=== PATIENT | female | born 1950 | race Caucasian/White ===

== ENCOUNTER 2017-01-05 12:58 | Inpatient (IN) ==
--- NOTE | 2017-01-04 22:00 | Discharge Summary ---
<Yun Dan - Last Filed: 01/04/17 21:58> Date of Encounter: 01/04/17 - Discharge Diagnosis (1) Arthritis of right hip Priority: Primary Status: Chronic - Discharge Medications Home Medications: Aspirin Enteric Coated [Aspirin EC] 325 mg PO QAM #21 tablet. 01/04/17 [Rx] OxyCODONE Immed Rel [Roxicodone 5 MG] 5 - 10 mg PO Q6HR PRN #40 tablet 01/04/17 [Rx] Etodolac [Lodine] 400 mg PO BID 01/05/17 [History] Allergies/Adverse Reactions: Allergies Sulfa (Sulfonamide Antibiotics) Adverse Reaction (Verified 01/06/17 19:30) See Comments PATIENT UNSURE OF REACTION,OCCURED AN INFANT Primary care physician: Juan Ramon Zavala MD - Patient Status Disposition: Home, Self-Care Condition: Good - Discharge Instructions Follow Up With: Juan Ramon Zavala MD [Primary Care Provider] - - Hospital Course Hospital course: Ms. Chairez is a 66 year old female - Time Spent with Patient Total time spent providing and/or coordinating discharge services: - VTE Documentation of Mechanical Device: Venous foot pump, device <Leodan Mccarty - Last Filed: 01/07/17 08:05> Date of Encounter: 01/07/17 Time of Encounter: 08:04 - Discharge Diagnosis (1) Status post right hip replacement Priority: Primary Status: Acute (2) Arthritis of right hip Priority: Primary Status: Acute Primary care physician: Juan Ramon Zavala MD - Patient Status Functional capacity at discharge: uses cane/walker Overall status at discharge: patient is progressing back to baseline - Hospital Course Hospital course: Ms. Chairez is a 66 year old female Status post right total hip replacement. The patient had an uneventful postoperative course. They received antibiotics and physical therapy and were discharged in stable condition. There will follow -up in the office in 2 weeks. Aspirin DVT prophylaxis discharge hemoglobin 10 a symptomatic - Time Spent with Patient Total time spent providing and/or coordinating discharge services:
[2017-01-05] MEDS ORDERED: Gabapentin 300 MG CAPSULE PO ONE (13:07)
[2017-01-05] MEDS ORDERED: Famotidine 20 MG/2 ML VIAL IVP ONE (13:07)
[2017-01-05] MEDS ORDERED: CeFAZolin Pre 2,000 MG/100 ML 2,000 MG/100 ML BAG IVPB ONE (13:13)
[2017-01-05] MEDS ORDERED: Ringers Solution, Lactated 1,000 ML IVC SCH ×2 (13:15→17:33)
--- NOTE | 2017-01-05 13:20 | History & Physical Report ---
Date of Encounter: 01/05/17 Time of Encounter: 13:19 24 Hour HP Update - Instructions Instructions: If the History and Physical is less than 30 days old and was completed prior to A.M. admission and or procedure and has NOT been updated on calendar day of procedure please complete this update prior to performing procedure. - Update Patient reports changes in Medical Condition: No Changes in examination, assessment, or condition: No Changes in Medication: No Preop tests/diagnostics Reviewed: Yes Surgery Remains Indicated: Yes Consent for Planned Operative Procedure(s) Verified: Yes - Pre-Operative Checklist Preoperative Checklist Indicated: No Prophylactic Antibiotic Ordered: Yes Is VTE Prophylaxis Indicated?: Yes
[2017-01-05] MEDS ORDERED: *HR* Propofol 200 MG/20 ML VIAL IVP ONE (13:36)
[2017-01-05] MEDS ORDERED: Lidocaine -MPF 2% 2 ML VIAL ONE (13:36)
[2017-01-05] MEDS ORDERED: *HR* Midazolam HCl 2 MG/2 ML VIAL ONE (13:36)
[2017-01-05] MEDS ORDERED: Ondansetron 4 MG/2 ML VIAL ONE (13:36)
[2017-01-05] MEDS ORDERED: *HR* FentaNYL (PF) 100 MCG/2 ML VIAL ONE (13:36)
[2017-01-05] MEDS ORDERED: *HR* Succinylcholine 200 MG/10 ML VIAL IVP ONE (13:36)
--- NOTE | 2017-01-05 13:36 | Anesthesia Evaluation PreOp ---
Date of Encounter: 01/05/17 Time of Encounter: 13:30 - Past History Planned Operation: Rt THR Cardiac History: Denies any Significant Hx Pulmonary History: Denies Any Significant HX OUTREACH EDUCATOR History: Denies Any Significant HX Other Medical History: Other (Osteoarthritis) Anesthesia History: No Prior Anesthetic Complications : No Test: Negative Alcohol Use: occasionally Drug use: none Medications and Allergies Aspirin Enteric Coated [Aspirin EC] 325 mg PO QAM #21 tablet. 01/04/17 [Rx] OxyCODONE Immed Rel [Roxicodone 5 MG] 5 - 10 mg PO Q6HR PRN #40 tablet 01/04/17 [Rx] Etodolac [Lodine] 400 mg PO BID 01/05/17 [History] Allergies Sulfa (Sulfonamide Antibiotics) Adverse Reaction (Unverified 01/05/17 13:14) See Comments PATIENT UNSURE OF REACTION,OCCURED AN - Meds/Allergy Pre-op Review Medications Reviewed: Yes Allergies Reviewed: Yes Beta Blockers on Current Med List: No Anesthesia Results - Labs Laboratory Tests 12/25/16 12/25/16 08:40 08:40 Hgb 13.3 Hct 39.9 Plt Count 255 Sodium 137 Potassium 4.7 H BUN 11 Creatinine 0.85 Anesthesia Exam O2 Sat Height 1.63 m Height 1.63 m Weight 78.471 kg Weight 78.471 kg O2 Sat by Pulse Oximetry 95 Vital Signs Temp Pulse Resp BP Pulse Ox 98.2 F 93 18 136/82 95 01/05/17 13:12 01/05/17 13:12 01/05/17 13:12 01/05/17 13:12 01/05/17 13:12 Height: 5'4 Weight: 173 lbs NPO (# of Hours): MN Pain Scale: 0 - HEENT Pupil (Motor): Pupils equal, EOMI Mallampati: II Teeth: Normal Oral Opening: Greater than 3 - OUTREACH EDUCATOR LOC: Oriented OUTREACH EDUCATOR Motor: Normal RUE, Normal LUE, Normal RLE, Normal LLE, Normal Face OUTREACH EDUCATOR Sensory: Normal: RUE, LUE, RLE, LLE, Face - Cardiac Rhythm: Regular Murmur: None JVD: No Carotid Bruit: No - Pulmonary Breath Sounds: bilateral Clear Respiratory Effort: Symmetrical Anesthesia Assess/Plan ASA Score: 2 Modified Tim Scale for Level of Consciousness: Cooperative, oriented, and tranquil Anesthetic Plan: General, Regional Monitoring Plan: Standard Monitors Recovery Plan: PACU (Discussed GA and RA, agrees to proceed)
[2017-01-05] MEDS ORDERED: Ondansetron 4 MG/2 ML VIAL IVP ONE (13:40)
[2017-01-05] MEDS ORDERED: Bupivacaine/Clonidine Syringe 1 EACH SYRINGE ONE (13:41)
--- NOTE | 2017-01-05 15:01 | Anesthesia Procedures ---
Date of Encounter: 01/05/17 Time of Encounter: 13:35 Procedures: Anesthesia - Nerve Block Procedure Date: 01/05/17 Time: 14:40 Pre-op Diagnosis: Rt Hip Osteoarthritis Surgical Procedure: Rt THR Checklist: Correct Patient Identifier Correct side: Right Monitor Applied: EKG Supplemental Oxygen via Nasal Cannula (L/min): 2 Sedation: Versed (mg): 2 Sedation: Fentanyl (mcg): 100 Indication: Post Op Analgesia Pre-op Neuro Deficits: No Block Type: Other (Fascia Iliaca) Catheter placed: No Depth at skin (cm): 2 Sterile Technique: Yes Ultrasound used: Yes Anatomy identified: Yes Visual spread of Local: Yes Neuro Stimulation: No Blood on Needle Aspiration: No Smooth Injection of Local: Yes Pain with Injection of Local: No Prep: Chlorhexadine Needle: 22 x 50 mm Stimuplex Local: 0.25% Bupivicaine w/Clonidine 20 mcg/cc Volume (cc): 60 Number of Attempts: 1 Complications: None/effective block Vitals: O2 Sat Height 1.63 m Height 1.63 m Height 1.63 m Weight 78.471 kg Weight 78.471 kg Weight 78.471 kg O2 Sat by Pulse Oximetry 96 O2 Sat by Pulse Oximetry 98 O2 Sat by Pulse Oximetry 95 Vital Signs Temp Pulse Resp BP Pulse Ox 98.2 F 93 18 136/82 95 01/05/17 13:12 01/05/17 13:12 01/05/17 13:12 01/05/17 13:12 01/05/17 13:12
[2017-01-05] MEDS ORDERED: *HR* HYDROmorphone 2 MG/ML SYRINGE ONE (15:23)
--- NOTE | 2017-01-05 15:48 | Orthopedic Operative Note ---
Date of procedure: 01/05/17 Pre-op diagnosis: Right hip arthritis Post-op diagnosis: same Procedure: Procedure: Right Total Hip Replacment Estimated blood loss: 200 cc Hardware: Metal and polyethylene replacement. Biomet DM Cup: 52 G7 fin cup Femoral size 12 echo full profile lateralized stem Head: +3 head with Marah Procedural Notes: Grade 4 arthritic changes femoral head acetabular socket. Operative procedure: The patient was brought to the operating room and placed on the operating room table. After general anesthesia was administered the patient was placed in the lateral decubitus position with the operative leg up. All pressure points were padded appropriately and the head was stabilized in the neutral position. The operative extremity was prepped and draped in the sterile surgical fashion patient received IV antibiotic prior to skin incision. A standard posterior approach is made to the operative hip, the incision was made through the skin and subcutaneous tissue hemostasis was obtained with Bovie cautery. Using careful sharp dissection the fascia was identified and incised exposing the external rotators. The external rotators were released off the greater trochanter and tagged with #2 FiberWire suture. The capsule was T'd open and the hip was brought into internal rotation. Patient noted to have grade 4 arthritic changes femoral head. The femoral neck cut was made at the appropriate level. An anterior capsulotomy was performed for the anterior retractor. Soft tissues removed from the acetabulum. Patient noted to have grade 4 arthritic changes acetabulum. Acetabulum was first reamed medially, and then reamed in 15 degrees of anteversion and 45 degrees off the horizontal. It was reamed up to the appropriate size 52 The appropriate-sized to acetabular cup was impacted in place in 15 degrees of anteversion and 45 degrees off the horizontal. This had good fit and fixation. The hip was brought back in to internal rotation and prepared with the box maker followed by the canal finder followed by broaching process in 20 degrees anteversion. It was broached up to the appropriate size 12 The femoral implant was impacted in place in 20 degrees of anteversion. Trial reduction found the hip to be stable with 3 head and Marah. The trials were removed and the real implants were impacted in place. The hip was reduced, patient had apparent equal leg lengths. The hip had excellent stability with forward flexion to 90 degrees adduction of 30 degrees and internal rotation of 60 degrees. The hip had no shuck. The hips after 2 minutes with a Betadine saline solution. It was irrigated out with 2 L of pulse irrigation. Yun the PA close the hip, Fascia was closed with a running #2 PDS suture. The deep tissue was irrigated and closed deep with #1 PDS suture superficially with 0 PDS suture and skin was closed with Dermabond and skin lori. The patient was placed in a sterile dressing and abduction pillow. The patient was extubated and transferred to the recovery room in stable condition. Anesthesia: GETA Surgeon: Leodan Mccarty Condition: stable Disposition: PACU
[2017-01-05] MEDS: *HR* HYDROmorphone (PF) 1 MG/ML SYRINGE IVP PRN ×3 (16:29→16:48)
[2017-01-05 16:51] LABS: Hematocrit 34.1 % (35.3-44.9); Hemoglobin 11.3 g/dL (11.5-15.4)
--- NOTE | 2017-01-05 17:06 | Anesthesia Evaluation Post Op ---
Date of Encounter: 01/05/17 Time of Encounter: 17:05 - Vital Signs Vital Signs: Vital Signs/O2 Sat/Glucose, Most Current Temp Pulse Resp BP Pulse Ox 01/05/17 16:55 85 16 158/96 97 01/05/17 16:45 97.2 F L 86 16 154/96 97 01/05/17 16:35 83 16 151/94 95 01/05/17 16:25 84 16 147/96 97 01/05/17 16:15 97.7 F 89 12 141/101 100 01/05/17 14:46 80 16 127/72 96 01/05/17 14:23 81 16 146/93 98 01/05/17 13:12 98.2 F 93 18 136/82 95 - Lungs Lungs: Clear Ascult./Percussion - Airway Airway: Non-obstructed - Cardiovascular Regular Rate - Mental Status Mental Status: Alert & Oriented, Answers Appropriately - Pain Pain Scale: 0 - Nausea Vomiting Nausea Vomiting: Not Present - Hydration Hydration: Ice chips - Discharge PostOp Status: Transfer Patient to floor
[2017-01-05] MEDS ORDERED: Naloxone 0.4 MG/ML INJ IVP PRN (17:33)
[2017-01-05] MEDS ORDERED: Ondansetron 4 MG/2 ML VIAL IVP PRN (17:33)
[2017-01-05] MEDS ORDERED: *HR* HYDROmorphone (PF) 1 MG/ML SYRINGE IVP PRN (17:33)
[2017-01-05] MEDS ORDERED: Temazepam 15 MG CAPSULE PO PRN (17:33)
[2017-01-05] MEDS ORDERED: Sennosides 8.6 MG TABLET PO PRN (17:33)
[2017-01-05] MEDS ORDERED: MOM Conc 10 ML UD.LIQ PO PRN (17:33)
[2017-01-05] MEDS ORDERED: *HR* Enoxaparin 30 MG/0.3 ML SYRINGE SQ SCH (18:00)
[2017-01-05] MEDS: ceFAZolin 2,000 MG in D5% in Water 100 ML IVPB SCH (18:49)
[2017-01-05] MEDS: Ascorbic Acid 500 MG TABLET PO SCH (18:50)
[2017-01-05] MEDS: *HR* Enoxaparin 30 MG/0.3 ML SYRINGE SQ SCH (18:50)
[2017-01-06] MEDS: ceFAZolin 2,000 MG in D5% in Water 100 ML IVPB SCH (00:04)
[2017-01-06] MEDS: *HR* Enoxaparin 30 MG/0.3 ML SYRINGE SQ SCH ×2 (04:43→17:57)
--- NOTE | 2017-01-06 07:01 | Orthopedics Progress Note ---
Date of Encounter: 01/06/17 Time of Encounter: 07:01 - Assessment and Plan (1) Status post right hip replacement Current Visit: Yes Status: Acute (2) Arthritis of right hip Current Visit: Yes Status: Acute Subjective Interval history: Patient was seen this morning doing well without complaints. Afebrile vital signs stable. Operative extremity: Neurovascularly intact Dressing clean dry and intact Calves nontender Assessment and plan: Continue with postoperative care Hematocrit 34 Objective Vital signs: Vital Signs Temp Pulse Resp BP Pulse Ox 01/06/17 06:56 98.2 F 69 16 124/80 100 01/06/17 05:12 98.2 F 66 17 116/75 99 01/06/17 00:55 98.1 F 68 16 103/65 95 01/05/17 20:40 98.0 F 79 16 131/83 97 01/05/17 19:34 98.0 F 79 16 131/83 97 01/05/17 18:39 97.6 F 82 19 138/87 95 01/05/17 18:02 97.7 F 83 18 155/98 95 01/05/17 17:35 97.6 F 83 16 152/105 95 01/05/17 17:05 97.5 F L 84 16 155/92 96 01/05/17 16:55 85 16 158/96 97 01/05/17 16:45 97.2 F L 86 16 154/96 97 01/05/17 16:35 83 16 151/94 95 01/05/17 16:25 84 16 147/96 97 01/05/17 16:15 97.7 F 89 12 141/101 100 01/05/17 14:46 80 16 127/72 96 01/05/17 14:23 81 16 146/93 98 01/05/17 13:12 98.2 F 93 18 136/82 95 Intake and Output 01/05/17 01/05/17 01/06/17 15:59 23:59 07:59 Intake Total 100 / 100 100 / 100 Output Total 200 / 200 1000 / 1000 Balance -100 / -100 100 / 100 -1000 / -1000 Intake: IV Fluids 100 / 100 100 / 100 Ancef Premix 2,000 MG/100 100 / 100 ML 2,000 mg In 100 ml @ 200 mls/hr IVPB PREOP ONE Rx#:[id number] Ancef 2,000 MG In 100 / 100 Dextrose 5% 100 ML @ 200 mls/hr IVPB Q8HR [facility] Rx#: [id number] Output: Urine 1000 / 1000 Estimated Blood Loss 200 / 200 Other: Weight 78.471 kg 82.1 kg Patient Weight 01/06/17 23:59 Weight 82.1 kg - Labs CBC & BMP: 01/05/17 16:31 Labs: Abnormal lab results Hgb 11.3 g/dL (11.5-15.4) L 01/05/17 16:31 Hct 34.1 % (35.3-44.9) L 01/05/17 16:31 - VTE Documentation of Mechanical Device: Intermittent pneumatic compression device Consult Discharge Plan - Plan Referrals: Juan Ramon Zavala MD [Primary Care Provider] -
[2017-01-06 07:35] LABS: Hematocrit 32.8 % (35.3-44.9); Hemoglobin 11.1 g/dL (11.5-15.4)
[2017-01-06 07:49] LABS: BUN/Creatinine Ratio 14 (6-26); Blood Urea Nitrogen 10 mg/dL (7-20); Calcium 8.5 mg/dL (8.6-10.8); Carbon Dioxide 26 mEq/L (19-29); Chloride 104 mEq/L (98-109); Glucose 93 mg/dL (70-99); Osmolality,Calculated 281 (280-300); Potassium 3.9 mEq/L (3.5-4.5); Sodium 136 mEq/L (136-145); eGFR For African Americans > 60 (> 60); eGFR For Non-African Americans > 60 (> 60)
[2017-01-06] MEDS: Multivit/Ca/Min/Fe/FA 1 TAB TABLET PO SCH (09:02)
[2017-01-06] MEDS: Ascorbic Acid 500 MG TABLET PO SCH ×2 (09:02→17:57)
[2017-01-06] MEDS: *HR* OxyCODONE Immed Rel 5 MG TABLET PO PRN ×2 (09:03→19:35)
[2017-01-07] MEDS: *HR* OxyCODONE Immed Rel 5 MG TABLET PO PRN ×2 (03:29→07:27)
[2017-01-07] MEDS: *HR* Enoxaparin 30 MG/0.3 ML SYRINGE SQ SCH (06:35)
[2017-01-07 06:37] LABS: Hematocrit 30.2 % (35.3-44.9); Hemoglobin 9.9 g/dL (11.5-15.4)
[2017-01-07 06:46] LABS: BUN/Creatinine Ratio 13 (6-26); Blood Urea Nitrogen 9 mg/dL (7-20); Calcium 8.3 mg/dL (8.6-10.8); Carbon Dioxide 28 mEq/L (19-29); Chloride 103 mEq/L (98-109); Glucose 98 mg/dL (70-99); Osmolality,Calculated 279 (280-300); Potassium 3.9 mEq/L (3.5-4.5); Sodium 135 mEq/L (136-145); eGFR For African Americans > 60 (> 60); eGFR For Non-African Americans > 60 (> 60)
[2017-01-07 07:05] VITALS: BP 105/69
[2017-01-07] MEDS: Multivit/Ca/Min/Fe/FA 1 TAB TABLET PO SCH (07:27)
[2017-01-07] MEDS: Ascorbic Acid 500 MG TABLET PO SCH (07:27)
--- NOTE | 2017-01-07 08:06 | Orthopedics Progress Note ---
Date of Encounter: 01/07/17 Time of Encounter: 08:06 - Assessment and Plan (1) Status post right hip replacement Current Visit: Yes Status: Acute (2) Arthritis of right hip Current Visit: Yes Status: Acute Subjective Interval history: Patient was seen this morning doing well without complaints. Afebrile vital signs stable. Operative extremity: Neurovascularly intact Dressing clean dry and intact Calves nontender Assessment and plan: Continue with postoperative care Hematocrit 30 discharged today Objective Vital signs: Vital Signs Temp Pulse Resp BP Pulse Ox 01/07/17 07:04 98.4 F 92 16 105/69 95 01/07/17 00:21 98.5 F 85 18 120/75 100 01/06/17 20:36 98.6 F 89 18 122/79 99 01/06/17 17:09 102/68 01/06/17 15:39 98.7 F 77 14 99/64 96 01/06/17 11:39 98.2 F 84 16 92/65 98 Intake and Output 01/06/17 01/07/17 01/07/17 23:59 07:59 15:59 Intake Total 580 / 580 Output Total 500 / 500 Balance 80 / 80 Intake: Oral 580 / 580 Output: Urine 500 / 500 Other: Meal Dinner Percent of Meal Consumed 100% # Voids 1 1 Weight 81.5 kg Patient Weight 01/07/17 23:59 Weight 81.5 kg - Labs CBC & BMP: 01/07/17 06:09 01/07/17 06:09 Labs: Abnormal lab results Hgb 9.9 g/dL (11.5-15.4) L 01/07/17 06:09 Hct 30.2 % (35.3-44.9) L 01/07/17 06:09 Sodium 135 mEq/L (136-145) L 01/07/17 06:09 Calculated Osmolality 279 (280-300) L 01/07/17 06:09 Calcium 8.3 mg/dL (8.6-10.8) L 01/07/17 06:09 - VTE Documentation of Mechanical Device: Venous foot pump, device Consult Discharge Plan - Plan Referrals: Juan Ramon Zavala MD [Primary Care Provider] -
== END 2017-01-07 10:00 | disposition home or self-care (01) | DRG 470 ==
LOC: SAMDAY 12:58 → 3NENU 17:50
PROVIDERS: ADMIT Orthopaedic Surgery; ATTEND Orthopaedic Surgery

== ENCOUNTER 2019-10-26 10:03 | Inpatient (IN) ==
[2019-10-26] MEDS ORDERED: *HR* FentaNYL (PF) 100 MCG/2 ML VIAL IVP ONE (10:09)
[2019-10-26] MEDS ORDERED: Isovue-370 500 ML BOTTLE IVP ONE (10:39)
[2019-10-26 10:40] LABS: Basophils % 0.3 %; Eosinophils # 0.7 K/mcL (0.0-0.6); Eosinophils % 5.4 %; Hematocrit 33.4 % (35.3-44.9); Hemoglobin 11.3 g/dL (11.5-15.4); Immature Granulocytes % 0.4 % (0-4); Lymphocytes # 0.9 K/mcL (0.6-4.6); Lymphocytes % 6.7 %; Mean Corpuscular HGB Conc 33.8 g/dL (31.6-35.5); Mean Corpuscular Hemoglobin 32.6 pg (28.0-33.3); Mean Corpuscular Volume 96.3 fL (83.0-100.0); Mean Platelet Volume 8.7 fL (9.4-12.4); Monocytes # 0.8 K/mcL (0.0-1.3); Monocytes % 6.1 %; Neutrophils # 10.4 K/mcL (1.6-8.9); Platelet Count 387 K/mcL (140-400); Red Blood Count 3.47 M/mcL (3.82-4.97); Red Cell Distribution Width 12.7 % (11.5-14.5); Segmented Neutrophils % 81.1 %; White Blood Count 12.9 K/mcL (4.3-11.1)
[2019-10-26] MEDS ORDERED: Piperacillin/Tazobactam 3.375 GM in Water for inj. (sterile) 20 ML IVP ONE (11:35)
[2019-10-26] MEDS ORDERED: Pantoprazole 40 MG VIAL IVP ONE (11:35)
[2019-10-26] MEDS ORDERED: *HR* HYDROmorphone (PF) 1 MG/ML SYRINGE IVP ONE (11:35)
[2019-10-26] MEDS ORDERED: 0.9 % Sodium Chloride 1,000 ML IVC ONE (11:39)
[2019-10-26] MEDS ORDERED: Ondansetron 4 MG/2 ML VIAL IVP ONE (11:39)
[2019-10-26 12:28] LABS: Alanine Aminotransferase 10 Units/L (7-52); Albumin 3.8 g/dL (3.5-5.7); Albumin/Globulin Ratio 1.5 (1.1-2.2); Alkaline Phosphatase 79 Units/L (34-104); Aspartate Amino Transferase 12 Units/L (13-39); BUN/Creatinine Ratio 17 (6-26); Bilirubin,Direct 0.1 mg/dL (0.0-0.2); Bilirubin,Indirect 0.5 mg/dL (0.0-1.0); Bilirubin,Total 0.6 mg/dL (0.3-1.0); Blood Urea Nitrogen 11 mg/dL (8-23); Calcium 8.8 mg/dL (8.6-10.3); Carbon Dioxide 25 mEq/L (23-29); Chloride 94 mEq/L (98-107); Globulin 2.5 g/dL (2.4-3.5); Glucose 108 mg/dL (70-105); Lipase 3 Units/L (11-82); Osmolality,Calculated 262 (280-300); Potassium 3.8 mEq/L (3.5-5.1); Sodium 126 mEq/L (136-145); Total Protein 6.3 g/dL (6.4-8.9); eGFR For African Americans > 60 (> 60); eGFR For Non-African Americans > 60 (> 60)
[2019-10-26 12:42] LABS: Prothrombin Time 11.5 Seconds (9.4-12.1)
[2019-10-26] MEDS ORDERED: *HR* HYDROmorphone 20 MG/20 ML PCA IVC PRN (13:06)
[2019-10-26] MEDS: 0.9 % Sodium Chloride 1,000 ML IVC SCH (15:02)
[2019-10-26] MEDS: Piperacillin/Tazobactam 3.375 GM in 0.9 % Sodium Chloride Mini Bag 100 ML IVPB SCH (17:24)
[2019-10-26] MEDS: *HR* Heparin 5,000 UNIT/ML VIAL SQ SCH (17:25)
[2019-10-27 00:23] LABS: Bilirubin,Urine Small (Negative); Blood,Urine Negative (Negative); Clarity,Urine Clear (Clear); Color,Urine Dark Yellow (Yellow); Glucose,Urine (UA) Normal (Normal); Ketones,Urine Negative (Negative); Leukocyte Esterase,Urine Small (Negative); Nitrite,Urine Negative (Negative); Protein,Urine Trace mg/dL (Neg-Trace); Specific Gravity,Urine > 1.030 (1.010-1.025); Urobilinogen,Urine Normal (Normal)
[2019-10-27 00:25] LABS: Bacteria,Urine None Seen per hpf (None-Few); Hyaline Casts,Urine None Seen per lpf (None-Few); Squamous Epithelial Cell,Urine Many per lpf (None-Few)
[2019-10-27] MEDS ORDERED: 0.9 % Sodium Chloride 1,000 ML IV ONE (00:39)
[2019-10-27] MEDS: Piperacillin/Tazobactam 3.375 GM in 0.9 % Sodium Chloride Mini Bag 100 ML IVPB SCH ×2 (03:01→16:14)
[2019-10-27] MEDS: 0.9 % Sodium Chloride 1,000 ML IVC SCH ×4 (03:02→19:31)
[2019-10-27] MEDS ORDERED: Acetaminophen IV 1,000 MG/100 ML INFUS..BTL IVPB SCH (04:00)
[2019-10-27] MEDS: *HR* Heparin 5,000 UNIT/ML VIAL SQ SCH ×2 (05:41→16:44)
[2019-10-27 06:11] LABS: Basophils % 0.2 %; Hematocrit 31.1 % (35.3-44.9)
[2019-10-27 06:12] LABS: White Blood Count 25.7 K/mcL (4.3-11.1)
[2019-10-27 06:13] LABS: Basophils # 0.1 K/mcL (0.0-0.2); Eosinophils # 0.1 K/mcL (0.0-0.6); Eosinophils % 0.4 %; Hemoglobin 10.4 g/dL (11.5-15.4); Immature Granulocytes % 1.8 % (0-4); Lymphocytes # 0.7 K/mcL (0.6-4.6); Lymphocytes % 2.8 %; Mean Corpuscular HGB Conc 33.4 g/dL (31.6-35.5); Mean Corpuscular Hemoglobin 32.3 pg (28.0-33.3); Mean Corpuscular Volume 96.6 fL (83.0-100.0); Mean Platelet Volume 8.7 fL (9.4-12.4); Monocytes # 0.9 K/mcL (0.0-1.3); Monocytes % 3.5 %; Platelet Count 330 K/mcL (140-400); Red Blood Count 3.22 M/mcL (3.82-4.97); Red Cell Distribution Width 12.8 % (11.5-14.5); Segmented Neutrophils % 91.3 %
[2019-10-27 06:15] LABS: Neutrophils # 23.5 K/mcL (1.6-8.9)
[2019-10-27 06:34] LABS: Platelet Estimate Normal (Normal)
[2019-10-27 07:09] LABS: BUN/Creatinine Ratio 17 (6-26); Blood Urea Nitrogen 18 mg/dL (8-23); Calcium 8.1 mg/dL (8.6-10.3); Carbon Dioxide 20 mEq/L (23-29); Chloride 104 mEq/L (98-107); Glucose 89 mg/dL (70-105); Osmolality,Calculated 275 (280-300); Potassium 4.1 mEq/L (3.5-5.1); Sodium 132 mEq/L (136-145); eGFR For African Americans > 60 (> 60); eGFR For Non-African Americans 52 (> 60)
[2019-10-27] MEDS ORDERED: *HR* FentaNYL (PF) 100 MCG/2 ML VIAL ONE (07:53)
[2019-10-27] MEDS ORDERED: *HR* Propofol 200 MG/20 ML VIAL IVP ONE (07:53)
[2019-10-27] MEDS ORDERED: CefOXitin 1,000 MG VIAL ONE (07:56)
[2019-10-27] MEDS ORDERED: *HR* Promethazine 25 MG/ML VIAL IVP PRN (08:41)
[2019-10-27] MEDS ORDERED: Ondansetron 4 MG/2 ML VIAL IVP ONE (08:41)
[2019-10-27] MEDS ORDERED: Albuterol 2.5 MG/3 ML NEBULIZER IH PRN (08:41)
[2019-10-27] MEDS ORDERED: *HR* HYDROmorphone PF 0.5 MG/0.5 ML SYRINGE IVP PRN (08:41)
[2019-10-27] MEDS ORDERED: *HR* Meperidine 25 MG/ML SYRINGE IVP PRN (08:41)
[2019-10-27] MEDS ORDERED: Lidocaine -MPF 2% 2 ML VIAL ONE (08:55)
[2019-10-27] MEDS ORDERED: Dexamethasone 4 MG/ML VIAL ONE (08:55)
[2019-10-27] MEDS ORDERED: Ondansetron 4 MG/2 ML VIAL ONE (08:55)
[2019-10-27] MEDS ORDERED: *HR* Rocuronium Bromide 50 MG/5 ML VIAL ONE (08:55)
[2019-10-27] MEDS ORDERED: *HR* Succinylcholine 200 MG/10 ML VIAL IVP ONE (08:55)
[2019-10-27] MEDS ORDERED: *HR* PHENYLEPHRINE 1,000 MCG/10 ML SYRINGE IVP ONE ×2 (08:56→09:12)
[2019-10-27] MEDS ORDERED: EPHEDrine 50 MG/ML VIAL ONE (08:59)
[2019-10-27] MEDS ORDERED: Acetaminophen IV 1,000 MG/100 ML INFUS..BTL ONE (09:08)
[2019-10-27] MEDS ORDERED: Albumin Human 5% 25.0 GM/500 ML IV.SOLN ONE (09:08)
[2019-10-27] MEDS ORDERED: *HR* Phenylephrine 10 MG/ML VIAL ONE (09:43)
[2019-10-27] MEDS ORDERED: *HR* OxyCODONE/APAP 5/325 TABLET PO PRN ×2 (09:59→11:10)
[2019-10-27] MEDS ORDERED: *HR* Metoprolol 5 MG/5 ML VIAL IVP PRN (09:59)
[2019-10-27] MEDS ORDERED: Ondansetron 4 MG/2 ML VIAL IVP PRN (09:59)
[2019-10-27] MEDS ORDERED: 0.9 % Sodium Chloride 1,000 ML IVC SCH (10:00)
[2019-10-27] MEDS ORDERED: Morphine Sulfate 2 MG/ML SYRINGE IVP PRN (11:10)
[2019-10-27] MEDS ORDERED: Chloraseptic Spray 177 ML BOTTLE MM PRN (15:13)
[2019-10-27] MEDS ORDERED: Saliva Stimulant 100ml BOTTLE PO PRN (15:14)
[2019-10-27] MEDS: Acetaminophen IV 1,000 MG/100 ML INFUS..BTL IVPB SCH ×2 (16:14→21:51)
[2019-10-28] MEDS: Piperacillin/Tazobactam 3.375 GM in 0.9 % Sodium Chloride Mini Bag 100 ML IVPB SCH ×3 (00:07→16:03)
[2019-10-28] MEDS: Acetaminophen IV 1,000 MG/100 ML INFUS..BTL IVPB SCH ×4 (03:51→22:10)
[2019-10-28] MEDS: *HR* Heparin 5,000 UNIT/ML VIAL SQ SCH ×2 (05:23→18:25)
[2019-10-28] MEDS: Ondansetron 4 MG/2 ML VIAL IVP PRN (05:23)
[2019-10-28] MEDS: 0.9 % Sodium Chloride 1,000 ML IVC SCH ×2 (05:24→15:43)
[2019-10-28 06:05] LABS: Basophils % 0.1 %; Eosinophils # 0.2 K/mcL (0.0-0.6); Eosinophils % 0.8 %; Hematocrit 27.7 % (35.3-44.9); Hemoglobin 9.2 g/dL (11.5-15.4); Immature Granulocytes % 1.7 % (0-4); Lymphocytes # 0.6 K/mcL (0.6-4.6); Lymphocytes % 2.8 %; Mean Corpuscular HGB Conc 33.2 g/dL (31.6-35.5); Mean Corpuscular Hemoglobin 32.5 pg (28.0-33.3); Mean Corpuscular Volume 97.9 fL (83.0-100.0); Mean Platelet Volume 9.2 fL (9.4-12.4); Monocytes # 0.6 K/mcL (0.0-1.3); Monocytes % 2.8 %; Neutrophils # 20.1 K/mcL (1.6-8.9); Platelet Count 269 K/mcL (140-400); Red Blood Count 2.83 M/mcL (3.82-4.97); Red Cell Distribution Width 13.1 % (11.5-14.5); Segmented Neutrophils % 91.8 %; White Blood Count 21.9 K/mcL (4.3-11.1)
[2019-10-28 06:21] LABS: BUN/Creatinine Ratio 28 (6-26); Blood Urea Nitrogen 21 mg/dL (8-23); Calcium 8.5 mg/dL (8.6-10.3); Carbon Dioxide 21 mEq/L (23-29); Chloride 106 mEq/L (98-107); Glucose 114 mg/dL (70-105); Osmolality,Calculated 284 (280-300); Potassium 3.5 mEq/L (3.5-5.1); Sodium 135 mEq/L (136-145); eGFR For African Americans > 60 (> 60); eGFR For Non-African Americans > 60 (> 60)
[2019-10-28] MEDS: Pantoprazole 40 MG VIAL IVP SCH (08:40)
[2019-10-28] MEDS ORDERED: Pantoprazole 40 MG VIAL IVP SCH (09:00)
[2019-10-28] MEDS: *HR* Metoprolol 5 MG/5 ML VIAL IVP PRN (20:05)
[2019-10-29] MEDS: Piperacillin/Tazobactam 3.375 GM in 0.9 % Sodium Chloride Mini Bag 100 ML IVPB SCH ×3 (00:17→16:42)
[2019-10-29] MEDS: 0.9 % Sodium Chloride 1,000 ML IVC SCH ×2 (01:43→16:41)
[2019-10-29 04:06] LABS: Basophils % 0.2 %; Eosinophils # 0.6 K/mcL (0.0-0.6); Eosinophils % 3.4 %; Hematocrit 27.2 % (35.3-44.9); Immature Granulocytes % 0.9 % (0-4); Lymphocytes # 0.6 K/mcL (0.6-4.6); Lymphocytes % 3.4 %; Mean Corpuscular HGB Conc 33.1 g/dL (31.6-35.5); Mean Corpuscular Hemoglobin 32.5 pg (28.0-33.3); Mean Corpuscular Volume 98.2 fL (83.0-100.0); Mean Platelet Volume 9.3 fL (9.4-12.4); Monocytes # 0.9 K/mcL (0.0-1.3); Monocytes % 4.6 %; Neutrophils # 16.6 K/mcL (1.6-8.9); Platelet Count 291 K/mcL (140-400); Red Blood Count 2.77 M/mcL (3.82-4.97); Segmented Neutrophils % 87.5 %
[2019-10-29] MEDS: *HR* Metoprolol 5 MG/5 ML VIAL IVP PRN ×2 (04:07→20:00)
[2019-10-29 04:30] LABS: BUN/Creatinine Ratio 23 (6-26); Blood Urea Nitrogen 13 mg/dL (8-23); Calcium 8.4 mg/dL (8.6-10.3); Carbon Dioxide 22 mEq/L (23-29); Chloride 105 mEq/L (98-107); Glucose 102 mg/dL (70-105); Osmolality,Calculated 284 (280-300); Potassium 3.2 mEq/L (3.5-5.1); Sodium 137 mEq/L (136-145); eGFR For African Americans > 60 (> 60); eGFR For Non-African Americans > 60 (> 60)
[2019-10-29] MEDS: Acetaminophen IV 1,000 MG/100 ML INFUS..BTL IVPB SCH ×4 (04:48→22:08)
[2019-10-29] MEDS: *HR* Heparin 5,000 UNIT/ML VIAL SQ SCH ×2 (06:08→18:16)
[2019-10-29] MEDS: hydroCHLOROthiazide 25 MG TABLET PO SCH (08:18)
[2019-10-29] MEDS: Pantoprazole 40 MG VIAL IVP SCH (08:18)
[2019-10-29] MEDS ORDERED: Isovue-370 500 ML BOTTLE IVP ONE (23:50)
[2019-10-29] MEDS: Albuterol 2.5 MG/3 ML NEBULIZER IH SCH (23:58)
[2019-10-30] MEDS: Piperacillin/Tazobactam 3.375 GM in 0.9 % Sodium Chloride Mini Bag 100 ML IVPB SCH ×3 (01:08→15:47)
[2019-10-30 01:41] LABS: Basophils % 0.2 %; Eosinophils # 0.7 K/mcL (0.0-0.6); Eosinophils % 4.7 %; Hematocrit 25.8 % (35.3-44.9); Hemoglobin 8.5 g/dL (11.5-15.4); Heparin anti-factor XA UFH < 0.04 IU/mL (0.30-0.70); INR 1.2; Immature Granulocytes % 0.7 % (0-4); Lymphocytes # 0.9 K/mcL (0.6-4.6); Lymphocytes % 6.3 %; Mean Corpuscular HGB Conc 32.9 g/dL (31.6-35.5); Mean Platelet Volume 9.1 fL (9.4-12.4); Monocytes # 1.2 K/mcL (0.0-1.3); Monocytes % 8.6 %; Platelet Count 309 K/mcL (140-400); Prothrombin Time 13.3 Seconds (9.4-12.1); Red Blood Count 2.66 M/mcL (3.82-4.97); Red Cell Distribution Width 12.9 % (11.5-14.5); Segmented Neutrophils % 79.5 %; White Blood Count 13.8 K/mcL (4.3-11.1)
[2019-10-30] MEDS ORDERED: Furosemide 20 MG/2 ML VIAL IVP ONE (01:55)
[2019-10-30] MEDS ORDERED: *HR* Heparin 5,000 UNIT/ML VIAL IVP ONE (01:55)
[2019-10-30] MEDS ORDERED: *HR* Heparin 5,000 UNIT/ML VIAL IVP PRN ×2 (01:55)
[2019-10-30] MEDS ORDERED: Heparin 25,000 UNIT/250 ML D5W 25,000 UNIT/250 ML IV.SOLN IVC SCH (02:00)
[2019-10-30 02:05] LABS: BUN/Creatinine Ratio 17 (6-26); Blood Urea Nitrogen 10 mg/dL (8-23); Calcium 8.2 mg/dL (8.6-10.3); Carbon Dioxide 25 mEq/L (23-29); Chloride 102 mEq/L (98-107); Glucose 114 mg/dL (70-105); Osmolality,Calculated 282 (280-300); Potassium 2.7 mEq/L (3.5-5.1); Sodium 136 mEq/L (136-145); eGFR For African Americans > 60 (> 60); eGFR For Non-African Americans > 60 (> 60)
[2019-10-30] MEDS: Albuterol 2.5 MG/3 ML NEBULIZER IH SCH ×7 (03:47→23:56)
[2019-10-30] MEDS: Acetaminophen IV 1,000 MG/100 ML INFUS..BTL IVPB SCH ×4 (04:36→21:19)
[2019-10-30] MEDS: *HR* Metoprolol 5 MG/5 ML VIAL IVP PRN (04:36)
[2019-10-30] MEDS: Pantoprazole 40 MG VIAL IVP SCH (07:48)
[2019-10-30] MEDS: hydroCHLOROthiazide 25 MG TABLET PO SCH (07:50)
[2019-10-30 08:38] LABS: Basophils % 0.3 %; Eosinophils # 0.4 K/mcL (0.0-0.6); Hematocrit 25.7 % (35.3-44.9); Hemoglobin 8.7 g/dL (11.5-15.4); Immature Granulocytes % 0.4 % (0-4); Lymphocytes # 1.1 K/mcL (0.6-4.6); Lymphocytes % 8.2 %; Mean Corpuscular HGB Conc 33.9 g/dL (31.6-35.5); Mean Corpuscular Hemoglobin 32.6 pg (28.0-33.3); Mean Corpuscular Volume 96.3 fL (83.0-100.0); Monocytes # 1.3 K/mcL (0.0-1.3); Monocytes % 9.5 %; Neutrophils # 10.6 K/mcL (1.6-8.9); Platelet Count 316 K/mcL (140-400); Red Blood Count 2.67 M/mcL (3.82-4.97); Segmented Neutrophils % 78.6 %; White Blood Count 13.5 K/mcL (4.3-11.1)
[2019-10-30 14:17] LABS: Basophils % 0.3 %; Eosinophils # 0.4 K/mcL (0.0-0.6); Eosinophils % 3.1 %; Hematocrit 26.9 % (35.3-44.9); Hemoglobin 8.9 g/dL (11.5-15.4); Immature Granulocytes % 0.8 % (0-4); Lymphocytes # 0.9 K/mcL (0.6-4.6); Lymphocytes % 7.6 %; Mean Corpuscular HGB Conc 33.1 g/dL (31.6-35.5); Mean Corpuscular Hemoglobin 32.8 pg (28.0-33.3); Mean Corpuscular Volume 99.3 fL (83.0-100.0); Mean Platelet Volume 9.2 fL (9.4-12.4); Monocytes # 1.4 K/mcL (0.0-1.3); Neutrophils # 8.6 K/mcL (1.6-8.9); Platelet Count 268 K/mcL (140-400); Red Blood Count 2.71 M/mcL (3.82-4.97); Red Cell Distribution Width 13.1 % (11.5-14.5); Segmented Neutrophils % 76.2 %; White Blood Count 11.2 K/mcL (4.3-11.1)
[2019-10-30] MEDS ORDERED: Morphine Sulfate 2 MG/ML SYRINGE IVP ONE (22:06)
[2019-10-30 23:54] LABS: ABG Base Excess 7 mEq/L (-2 to 3); ABG HCO3 31 mEq/L (21-27); ABG Oxygen Saturation 99 % (95-98); ABG PCO2 37 mmHg (35-45); ABG PH 7.53 pH Units (7.32-7.45); ABG PO2 131 mmHg (85-104); ABG TCO2 32 mEq/L (20-26)
[2019-10-31] MEDS: Ondansetron 4 MG/2 ML VIAL IVP PRN ×2 (00:51→13:34)
[2019-10-31] MEDS: Acetaminophen IV 1,000 MG/100 ML INFUS..BTL IVPB SCH ×2 (04:00→09:33)
[2019-10-31] MEDS: Albuterol 2.5 MG/3 ML NEBULIZER IH SCH ×6 (04:10→23:47)
[2019-10-31 07:25] LABS: Hematocrit 24.2 % (35.3-44.9); Hemoglobin 8.3 g/dL (11.5-15.4); Mean Corpuscular HGB Conc 34.3 g/dL (31.6-35.5); Mean Corpuscular Hemoglobin 32.9 pg (28.0-33.3); Mean Platelet Volume 9.2 fL (9.4-12.4); Platelet Count 308 K/mcL (140-400); Red Blood Count 2.52 M/mcL (3.82-4.97); White Blood Count 10.6 K/mcL (4.3-11.1)
[2019-10-31 07:46] LABS: Alanine Aminotransferase 16 Units/L (7-52); Albumin/Globulin Ratio 1.2 (1.1-2.2); Alkaline Phosphatase 57 Units/L (34-104); Aspartate Amino Transferase 8 Units/L (13-39); BUN/Creatinine Ratio 14 (6-26); Bilirubin,Direct 0.2 mg/dL (0.0-0.2); Bilirubin,Indirect 0.5 mg/dL (0.0-1.0); Bilirubin,Total 0.7 mg/dL (0.3-1.0); Blood Urea Nitrogen 7 mg/dL (8-23); Calcium 8.2 mg/dL (8.6-10.3); Carbon Dioxide 26 mEq/L (23-29); Chloride 97 mEq/L (98-107); Globulin 2.5 g/dL (2.4-3.5); Glucose 106 mg/dL (70-105); Magnesium 2.1 mg/dL (1.6-2.6); Osmolality,Calculated 278 (280-300); Phosphorous 2.2 mg/dL (2.7-4.5); Potassium 2.9 mEq/L (3.5-5.1); Sodium 135 mEq/L (136-145); Total Protein 5.5 g/dL (6.4-8.9); eGFR For African Americans > 60 (> 60); eGFR For Non-African Americans > 60 (> 60)
[2019-10-31] MEDS: 0.9 % Sodium Chloride 1,000 ML IVC SCH (08:10)
[2019-10-31] MEDS: Piperacillin/Tazobactam 3.375 GM in 0.9 % Sodium Chloride Mini Bag 100 ML IVPB SCH ×4 (08:10→21:41)
[2019-10-31] MEDS: Pantoprazole 40 MG VIAL IVP SCH (09:33)
[2019-10-31] MEDS ORDERED: Potassium Phosphate 44 MEQ in 0.9 % Sodium Chloride 250 ML IVPB ONE (11:19)
[2019-11-01] MEDS: Albuterol 2.5 MG/3 ML NEBULIZER IH SCH ×4 (03:37→15:37)
[2019-11-01] MEDS: Piperacillin/Tazobactam 3.375 GM in 0.9 % Sodium Chloride Mini Bag 100 ML IVPB SCH (05:55)
[2019-11-01 07:09] LABS: Hematocrit 23.9 % (35.3-44.9); Hemoglobin 8.1 g/dL (11.5-15.4); Mean Corpuscular HGB Conc 33.9 g/dL (31.6-35.5); Mean Corpuscular Hemoglobin 32.5 pg (28.0-33.3); Platelet Count 327 K/mcL (140-400); Red Blood Count 2.49 M/mcL (3.82-4.97); Red Cell Distribution Width 13.2 % (11.5-14.5); White Blood Count 12.5 K/mcL (4.3-11.1)
[2019-11-01 07:32] LABS: BUN/Creatinine Ratio 12 (6-26); Blood Urea Nitrogen 5 mg/dL (8-23); Carbon Dioxide 25 mEq/L (23-29); Chloride 100 mEq/L (98-107); Glucose 99 mg/dL (70-105); Magnesium 1.9 mg/dL (1.6-2.6); Osmolality,Calculated 267 (280-300); Sodium 130 mEq/L (136-145); eGFR For African Americans > 60 (> 60); eGFR For Non-African Americans > 60 (> 60)
[2019-11-01] MEDS: Pantoprazole 40 MG VIAL IVP SCH (09:03)
[2019-11-01 12:48] VITALS: BP 117/74
== END 2019-11-01 16:16 | disposition home health service (06) | DRG 327 ==
LOC: EMEROOARM 10:03 → 3ANU 10:03
PROVIDERS: ADMIT Surgery; ATTEND Surgery